=== PATIENT | male | born 1955 | race Caucasian/White ===

== ENCOUNTER 2019-05-23 10:01 | Outpatient (CLI) | payer MEDICARE ==
[~2019-05-23 10:01] MED LIST: CYCL-259 PO; NONE PER PT; OXYC-307 PO
== END 2019-05-23 23:59 | disposition home or self-care (01) ==
LOC: STAR 10:01
PROVIDERS: ATTEND Specialist
DX: Z01.818 Encounter for other preprocedural examination (principal); D11.0 Benign neoplasm of parotid gland
CPT/HCPCS: 93005

== ENCOUNTER 2019-06-03 10:34 | Day surgery (SDC) | payer MEDICARE ==
[~2019-06-03] VITALS: Ht 180.3 cm; Wt 91.3 kg
[2019-06-03 10:57] VITALS: BP 144/87
== END 2019-06-03 18:25 | disposition home or self-care (01) ==
LOC: OUT 10:34
PROVIDERS: ATTEND Specialist
DX: D11.0 Benign neoplasm of parotid gland (principal); J34.2 Deviated nasal septum; J45.909 Unspecified asthma, uncomplicated; F32.9 Major depressive disorder, single episode, unspecified; Z72.89 Other problems related to lifestyle; Z79.899 Other long term (current) drug therapy; Z82.49 Family history of ischemic heart disease and other diseases of the circulatory system
CPT/HCPCS: 42415; 88307; J0330; J0690; J1100; J2250; J2405; J2704; J2710; J3010; J3490